=== PATIENT | female | born 1955 | race Caucasian/White ===

== ENCOUNTER → 2021-09-15 | Outpatient (CLI) | payer MEDICARE ==
[~2021-09-15] MED LIST: ALBUMIN 25% 12.5GM 50ML 200 ML IV ONE; AMILORIDE HCL5 MG PO; BUMETANIDE0.5 MG PO; HYDROXYZINE HCL10 MG PO; URSODIOL300 MG PO
[2021-09-15 14:47] LABS: INR 1.26; PROTHROMBIN TIME 16.8 seconds (11.9-14.5)
[2021-09-15 14:48] LABS: PARTIAL THROMBOPLASTIN TIME 33.8 seconds (23.8-35.5)
[2021-09-15 14:53] LABS: CREATININE, SERUM 1.11 mg/dL (0.57-1.11)
[2021-09-15 17:19] LABS: BODY FLUID APPEARANCE CLEAR; BODY FLUID COLOR STRAW; BODY FLUID TYPE PERITONEAL
[2021-09-15 17:20] LABS: RBC,BODY FLUID < 2000 cells/uL; WBC,BODY FLUID 41 cells/uL
[2021-09-15 19:02] LABS: LYMPHOCYTES,BODY FLUID 24 %; MONO/MACROPHG,BODY FLUID 56 %; NEUTROPHILS,BODY FLUID 11 %; OTHER CELLS,BODY FLUID 9 %
== END ==
LOC: US 14:12
PROVIDERS: ATTEND Internal Medicine Hepatology
DX: K74.69 Other cirrhosis of liver (principal)
CPT/HCPCS: 36415; 49083; 82565; 84520; 85014; 85610; 85730; 89051

== ENCOUNTER → 2021-09-29 | Outpatient (CLI) | payer MEDICARE ==
[2021-09-29 09:16] LABS: HEMOGLOBIN 9.9 g/dL (12.0-16.0)
[2021-09-29 09:49] LABS: INR 1.26; PROTHROMBIN TIME 16.8 seconds (11.9-14.5)
[2021-09-29 12:07] LABS: BODY FLUID APPEARANCE SL.CLOUDY; BODY FLUID COLOR STRAW
[2021-09-29 13:30] LABS: BODY FLUID TYPE PERITONEAL
[2021-09-29 13:31] LABS: MONO/MACROPHG,BODY FLUID 56 %; NEUTROPHILS,BODY FLUID 2 %
[2021-09-29 13:32] LABS: LYMPHOCYTES,BODY FLUID 21 %
[2021-09-29 13:33] LABS: EOSINOPHILS,BODY FLUID 2 %; OTHER CELLS,BODY FLUID 19 %
[2021-09-29 13:36] LABS: WBC,BODY FLUID 19 cells/uL
[2021-09-29 13:37] LABS: RBC,BODY FLUID 0 cells/uL
== END ==
LOC: US 08:46
PROVIDERS: ATTEND Internal Medicine Hepatology
DX: R18.8 Other ascites (principal)
CPT/HCPCS: 36415; 49083; 85014; 85049; 85610; 85730; 89051

== ENCOUNTER → 2021-10-13 | Outpatient (CLI) | payer MEDICARE ==
[2021-10-13 12:40] LABS: BODY FLUID APPEARANCE SL.CLOUDY; BODY FLUID COLOR YELLOW; BODY FLUID TYPE PERITONEAL; RBC,BODY FLUID 0 cells/uL; WBC,BODY FLUID 34 cells/uL
[2021-10-13 13:02] LABS: LYMPHOCYTES,BODY FLUID 15 %; MONO/MACROPHG,BODY FLUID 80 %; NEUTROPHILS,BODY FLUID 5 %
== END ==
LOC: US 09:06
PROVIDERS: ATTEND Internal Medicine Hepatology
DX: R18.8 Other ascites (principal)
CPT/HCPCS: 36415; 49083; 87070; 87205; 89051

== ENCOUNTER → 2021-10-24 | Outpatient (CLI) | payer MEDICARE ==
[2021-10-24 15:25] LABS: BODY FLUID APPEARANCE SL.CLOUDY; BODY FLUID COLOR YELLOW; BODY FLUID TYPE PERITONEAL
[2021-10-24 15:30] LABS: RBC,BODY FLUID < 2000 cells/uL; WBC,BODY FLUID 157 cells/uL
[2021-10-24 16:01] LABS: LYMPHOCYTES,BODY FLUID 24 %; MONO/MACROPHG,BODY FLUID 55 %; NEUTROPHILS,BODY FLUID 11 %; OTHER CELLS,BODY FLUID 10 %
== END ==
LOC: US 10:55
PROVIDERS: ATTEND Internal Medicine Hepatology
DX: R18.8 Other ascites (principal)
CPT/HCPCS: 36415; 49083; 89051

== ENCOUNTER → 2021-11-01 | Outpatient (CLI) | payer MEDICARE ==
[2021-11-01 13:25] LABS: HEMOGLOBIN 10.4 g/dL (12.0-16.0)
[2021-11-01 13:38] LABS: INR 1.34; PROTHROMBIN TIME 17.7 seconds (11.9-14.5)
[2021-11-01 13:39] LABS: PARTIAL THROMBOPLASTIN TIME 34.1 seconds (23.8-35.5)
[2021-11-01 13:57] LABS: ALBUMIN 2.6 g/dL (3.5-5.0); ALBUMIN/GLOBULIN RATIO 0.8 (0.8-2.0); ANION GAP 12.3 mmol/L (8-16); CALCIUM 8.5 mg/dL (8.4-10.2); CREATININE, SERUM 1.09 mg/dL (0.57-1.11); POTASSIUM 5.3 mmol/L (3.5-5.1)
[2021-11-01 14:45] LABS: BODY FLUID APPEARANCE CLOUDY; BODY FLUID COLOR YELLOW; BODY FLUID TYPE PERITONEAL
[2021-11-01 17:15] LABS: RBC,BODY FLUID < 2000 cells/uL; WBC,BODY FLUID 55 cells/uL
[2021-11-01 19:56] LABS: LYMPHOCYTES,BODY FLUID 6 %; MONO/MACROPHG,BODY FLUID 45 %; NEUTROPHILS,BODY FLUID 1 %; OTHER CELLS,BODY FLUID 48 %
== END ==
LOC: US 12:58
PROVIDERS: ATTEND Internal Medicine Hepatology
DX: R18.8 Other ascites (principal)
CPT/HCPCS: 36415; 49083; 80053; 85014; 85049; 85610; 85730; 89051

== ENCOUNTER → 2021-11-15 | Outpatient (CLI) | payer MEDICARE ==
[~2021-11-15] MED LIST changes: +ALBUMIN 25% 12.5GM 50ML 0 ML IV ONE; -ALBUMIN 25% 12.5GM 50ML 200 ML IV ONE
[2021-11-15 14:19] LABS: BODY FLUID APPEARANCE SL.CLOUDY; BODY FLUID COLOR STRAW; BODY FLUID TYPE PERITONEAL
[2021-11-15 14:20] LABS: RBC,BODY FLUID < 2000 cells/uL; WBC,BODY FLUID 48 cells/uL
[2021-11-15 16:55] LABS: LYMPHOCYTES,BODY FLUID 11 %; MONO/MACROPHG,BODY FLUID 88 %; NEUTROPHILS,BODY FLUID 1 %
== END ==
LOC: US 09:17
PROVIDERS: ATTEND Internal Medicine Hepatology
DX: K74.69 Other cirrhosis of liver (principal)
CPT/HCPCS: 36415; 49083; 89051

== ENCOUNTER → 2021-11-29 | Outpatient (CLI) | payer MEDICARE ==
[~2021-11-29] MED LIST changes: -ALBUMIN 25% 12.5GM 50ML 0 ML IV ONE; +ALBUMIN 25% 12.5GM 50ML 200 ML IV ONE
[2021-11-29 14:47] LABS: BODY FLUID APPEARANCE SL.CLOUDY; BODY FLUID COLOR YELLOW; BODY FLUID TYPE PERITONEAL
[2021-11-29 15:08] LABS: RBC,BODY FLUID < 2000 cells/uL; WBC,BODY FLUID 27 cells/uL
[2021-11-29 20:18] LABS: LYMPHOCYTES,BODY FLUID 16 %; MONO/MACROPHG,BODY FLUID 74 %; NEUTROPHILS,BODY FLUID 8 %; OTHER CELLS,BODY FLUID 2 %
== END ==
LOC: US 13:36
PROVIDERS: ATTEND Internal Medicine Hepatology
DX: K74.69 Other cirrhosis of liver (principal)
CPT/HCPCS: 36415; 49083; 87070; 87205; 89051; C1729

== ENCOUNTER → 2021-12-11 | Outpatient (CLI) | payer MEDICARE ==
[2021-12-11 13:41] LABS: HEMOGLOBIN 9.7 g/dL (12.0-16.0)
[2021-12-11 13:54] LABS: INR 1.41; PROTHROMBIN TIME 18.2 seconds (11.9-14.5)
[2021-12-11 13:55] LABS: PARTIAL THROMBOPLASTIN TIME 35.8 seconds (23.8-35.5)
[2021-12-11 13:58] LABS: ANION GAP 11.7 mmol/L (8-16); CALCIUM 8.1 mg/dL (8.4-10.2); CREATININE, SERUM 1.39 mg/dL (0.57-1.11); POTASSIUM 4.7 mmol/L (3.5-5.1)
[2021-12-11 15:25] LABS: BODY FLUID APPEARANCE SL.CLOUDY; BODY FLUID COLOR YELLOW; BODY FLUID TYPE PERITONEAL; RBC,BODY FLUID < 2000 cells/uL; WBC,BODY FLUID 23 cells/uL
[2021-12-11 16:36] LABS: LYMPHOCYTES,BODY FLUID 12 %; MONO/MACROPHG,BODY FLUID 37 %; NEUTROPHILS,BODY FLUID 1 %; OTHER CELLS,BODY FLUID 50 %
== END ==
LOC: US 13:24
PROVIDERS: ATTEND Internal Medicine Hepatology
DX: R18.8 Other ascites (principal); K74.69 Other cirrhosis of liver
CPT/HCPCS: 36415; 49083; 80048; 85014; 85049; 85610; 85730; 89051; C1729

== ENCOUNTER → 2021-12-21 | Outpatient (CLI) | payer MEDICARE ==
[~2021-12-21] MED LIST changes: +ALBUMIN 25% 12.5GM 50ML 100 ML IV ONE; -ALBUMIN 25% 12.5GM 50ML 200 ML IV ONE
[2021-12-21 11:07] LABS: BODY FLUID APPEARANCE SL.CLOUDY; BODY FLUID COLOR YELLOW; BODY FLUID TYPE PERITONEAL; RBC,BODY FLUID 0 cells/uL; WBC,BODY FLUID 27 cells/uL
[2021-12-21 11:14] LABS: LYMPHOCYTES,BODY FLUID 80 %; MONO/MACROPHG,BODY FLUID 5 %; NEUTROPHILS,BODY FLUID 5 %; OTHER CELLS,BODY FLUID 10 %
== END ==
LOC: US 08:34
PROVIDERS: ATTEND Internal Medicine Hepatology
DX: R18.8 Other ascites (principal)
CPT/HCPCS: 36415; 49083; 89051; C1729

== ENCOUNTER → 2022-01-04 | Outpatient (CLI) | payer MEDICARE ==
[~2022-01-04] MED LIST changes: -ALBUMIN 25% 12.5GM 50ML 100 ML IV ONE; +ALBUMIN 25% 12.5GM 50ML 200 ML IV ONE
[2022-01-04 14:56] LABS: BODY FLUID TYPE PERITONEAL
[2022-01-04 14:57] LABS: BODY FLUID APPEARANCE CLOUDY; BODY FLUID COLOR YELLOW; RBC,BODY FLUID < 2000 cells/uL; WBC,BODY FLUID 24 cells/uL
[2022-01-04 16:31] LABS: LYMPHOCYTES,BODY FLUID 15 %; MONO/MACROPHG,BODY FLUID 69 %; NEUTROPHILS,BODY FLUID 5 %
[2022-01-04 16:32] LABS: OTHER CELLS,BODY FLUID 11 %
== END ==
LOC: US 12:25
PROVIDERS: ATTEND Internal Medicine Hepatology
DX: R18.8 Other ascites (principal)
CPT/HCPCS: 36415; 49083; 89051; C1729